=== PATIENT | female | born 1970 | race Caucasian/White ===

== ENCOUNTER 2025-03-09 17:49 | Emergency (ER) | payer SELFPAY ==
[2025-03-09 17:51] VITALS: BP 147/95
[2025-03-09 18:32] LABS: Hematocrit 40.0 % (37.0-47.0); Hemoglobin 14.0 g/dL (12.0-16.0); Mean Corp Hgb Conc. 35.0 g/dL (33.0-37.0); Mean Corpuscular Volume 90.7 fL (81.0-99.0); Nucleated Red Blood Cells % 0 %; Platelet Count 246 10^3/uL (130-400); Red Cell Dist. Width 12.2 % (11.5-14.5)
[2025-03-09 18:33] LABS: Urine Character Slightly Cloudy (Clear)
[2025-03-09 18:39] LABS: Urine Red Blood Cell >100 /HPF (0-2); Urine Squamous Cell 0-2 /LPF (Few)
[2025-03-09 18:55] LABS: ALT (SGPT) 84 U/L (0-35); AST (SGOT) 60 U/L (14-36); Albumin 4.9 g/dl (3.5-5.0); Alkaline Phosphatase 97 U/L (38-126); Blood Urea Nitrogen 12 mg/dl (7-17); Calcium 9.6 mg/dl (8.4-10.2); Carbon Dioxide 26 mmol/L (22-30); Chloride 102 mmol/L (98-107); Glucose 99 mg/dl (70-99); Potassium 3.9 mmol/L (3.5-5.1); Sodium 136 mmol/L (135-145); Total Protein 7.9 g/dl (6.3-8.2); eGFR > 60.00
[2025-03-09 19:14] LABS: COVID-19 Antigen Positive (Negative)
[2025-03-09 20:59] VITALS: BMI 33.4
[2025-03-09 21:03] VITALS: BP 122/70
--- NOTE | 2025-03-09 21:07 | ED.GENMED ---
Addendum entered and electronically signed by ALEX Mckoy 03/12/25 13:04:
Patient called to check on her urine urine positive for E. coli. She reports urine still seems dark in color. Will treat with cefdinir this was sent to pharmacy. I did reiterate the instructions she received on discharged to follow-up with
urology/family doctor for reevaluation of hematuria as well she denies any nausea vomiting.
Original Note:
History of Present Illness
General
Chief Complaint: Urinary Symptoms
Time Seen by Provider: 03/09/25 20:56
History of Present Illness
History of Present Illness:
54-year-old female presents to the emergency department for evaluation of general malaise, myalgias, and cloudy/dark urine. She traveled from [place] earlier in the week and 2 days after flying developed fever and cough as well as sore throat. She
has been trying to rest and hydrate however noted her urine becoming progressively darker over the past 24 hours. Denies any chest pain or dyspnea at this point. Denies lower urinary tract voiding symptoms such as urgency or dysuria
Review of Systems
Review of Systems
Allergies reviewed?: Yes
All Other Systems: ROS reviewed and negative except as documented in HPI and ROS
Phy Exam
Physical Exam
Physical Exam:
GEN: Well appearing, NAD, WDWN
HEENT: Oral mucosa moist, no scleral icterus
Cardiac: Regular rate
Lung: No respiratory distress, no tachypnea
MSK: No gross deformity or injuries
Skin: Good color, no pallor or jaundice, no rashes
Neuro: AO x3, moves all extremities freely
Psych: Calm, cooperative
Course
Orders/Labs/Results
Orders:
Orders
03/09/25 18:10
COVID-19 Antigen Urgent
Source: Nasal Swab
Complete Blood Count/With Diff Urgent
Comprehensive Metabolic Panel Urgent
Creatine Phosphokinase Urgent
Comment: ADDON
Urinalysis Reflex To Culture Urgent
Date Specimen was Collected: 03/09/25
Time Specimen was Collected: 17:56
Urine Microscopic Reflex Cult Urgent
Influenza A+B Rapid Molecular Urgent
NICOLASA Source: Nasal Swab
Specimen Description:
Date Specimen was Collected: 03/09/25
Time Specimen was Collected: 17:56
Urine Culture Urgent
NICOLASA Source: U
Specimen Description:
Date Specimen was Collected: 03/09/25
Time Specimen was Collected: 17:56
03/09/25 21:03
Add On- LAB Urgent
Tests Added?: CPK
0.9% Sodium Chloride 1000 ml [Nss] 1,000 ml IV BOLUS
03/09/25 22:29
0.9% Sodium Chloride 1000 ml [Nss] 1,000 ml IV BOLUS
Abnormal Lab Results
03/09/25
18:10
MCH 31.7 H pg
(27.0-31.0)
Monocytes % 9.7 H %
(1.7-9.3)
AST 60 H U/L
(14-36)
ALT 84 H U/L
(0-35)
Creatine Kinase 167 H U/L
(30-135)
Urine Ketones 1+ A
(Negative)
Ur Occult Blood Reflex 4+ A
(Negative)
Urine Nitrite (Reflex) Positive A
(Negative)
Urine Bilirubin 1+ A
(Negative)
Urine Urobilinogen 2+ A
(Neg - 1+)
Leukocyte Esterase Rfl 2+ A
(Negative)
Urine RBC >100 A /HPF
(0-2)
Urine Bacteria (Reflex) Few A
(Negative)
Urine Albumin (Reflex) 3+ A
(Neg - Trace)
SARS-CoV-2 Antigen Positive A
(Negative)
03/09/25 18:10
03/09/25 18:10
Vital Signs
Initial and Last Documented VS:
Initial Vital Signs
Temp Pulse Resp BP Pulse Ox
98.5 F 90 16 147/95 95
03/09/25 17:51 03/09/25 17:51 03/09/25 17:51 03/09/25 17:51 03/09/25 17:51
Last Documented Vital Signs
Temp Pulse Resp BP Pulse Ox
99.1 F 79 16 122/70 97
03/09/25 20:59 03/09/25 21:03 03/09/25 17:51 03/09/25 21:03 03/09/25 21:30
MDM/Problems Addressed
MDM/Problems Addressed:
Unclear etiology to hematuria, rhabdo ruled out. She has no flank pain to suggest ureterolithiasis and no lower urinary tract voiding symptoms to suggest acute UTI. May be inflammatory complication of COVID-19. I have recommended continued
hydration at home, urine culture will be sent although no antibiotics will be started at this time. Recommend urology follow-up if hematuria does not improve along with COVID symptoms
*Pulse Oximetry
SaO2: 96
Oxygen Mode of Delivery: Room air
Patient hypoxic: no
*Critical Care Note
Total Time (30-74mins, 75-104mins- exclusive of procedures): Not Applicable
ED Attending Note
-
Portions of this chart may have been created with voice recognition software.� Occasional wrong word or��sound alike� substitutions may have occurred due to the inherent limitations of voice recognition software.
Discharge Plan
Departure
Patient Disposition: Home (Routine Discharge)
Date of Disposition: 03/09/25
Time of Disposition: 23:10
Patient with high blood pressure during this ER visit?: No
Discharge Problem:
Hematuria, COVID-19
Instructions: Blood in the Urine (Hematuria), Adult (DC)
Referrals:
Cathy Luu MD [Family Provider]
Israel Wright MD [Active, Urology]
Activity Restrictions/Additional Instructions:
The cause of the blood in your urine is not immediately clear however we have ruled out rhabdomyolysis. You have no symptoms of urinary tract infection however if your urine culture is positive we will call you and start antibiotics. Please
continue to stay hydrated and rest, COVID symptoms should improve over the next several days. If the blood in your urine does not improve along with the COVID symptoms please follow-up with urology as listed on your paperwork
Interventions
Interventions:
*Risk Screen - Suicide Last Done: 03/09/25 17:51
*General Assessment Last Done: 03/09/25 17:51
*Neglect/Abuse Screening Last Done: 03/09/25 17:51
*ED- Fall Risk Assessment Last Done: 03/09/25 17:51
*ED COVID-19 Vaccine History Last Done: 03/09/25 17:51
ED-Female Genitourinary Assessment Last Done: 03/09/25 21:00
Discharge Date and Time
Print Language: FAROESE
[2025-03-09] MEDS: NSS 1000 IV ×2 (21:13→22:53)
== END 2025-03-09 23:56 | disposition home or self-care (01) ==
LOC: EMR 17:49
PROVIDERS: EMERGENCY PHYSICIAN Emergency Medicine; FAMILY PHYSICIAN Family Medicine
DX: R31.9 Hematuria, unspecified (principal); U07.1 COVID-19; M79.10 Myalgia, unspecified site; R53.81 Other malaise
CPT/HCPCS: 99283; 96360; 96361; 80053; 81003; 81015; 82550; 85025; 87071; 87086; 87186; 87502; 87811